=== PATIENT | male | born 1950 | race Two or more races ===

== ENCOUNTER → 2018-11-23 | Outpatient (CLI) | payer OTHER ==
[~2018-11-23] MED LIST: ATEN100T PO; BICA50TA47 PO; BUPIVACAINE MPF 0.25% 10 ML VIAL. ONE; CHOL100013 PO; GARL1000 PO; HYDR-2763 PO; IOHEXOL 300 MG/ML 50 ML VIAL. ONE; LIDOCAINE 1% PF 30 ML VIAL. ONE; LISI40TA PO; METF500S5 PO; MULT1TAB52 PO; OMEP20CA10 PO; PRAV80TA2 PO; SERT100T PO; SILD50TA PO; TRIA15CR2 TP; methylPREDNISolone ACETATE 40 MG/ML VIAL. ONE; vitamin e
[2018-11-23 11:16] VITALS: BP 145/72
== END | disposition home or self-care (01) ==
LOC: SURG 10:22
PROVIDERS: ATTEND Anesthesiology
DX: M46.1 Sacroiliitis, not elsewhere classified (principal); Z79.899 Other long term (current) drug therapy
CPT/HCPCS: 27096; 82947; J1030; J2001; J3490; Q9967